=== PATIENT | male | born 1960 | race Two or more races ===

== ENCOUNTER 2018-07-18 06:16 | Day surgery (SDC) | payer OTHER ==
[2018-07-18] MEDS ORDERED: LIDOCAINE 2% (SDV) 5 ML INJ (07:00)
[2018-07-18] MEDS ORDERED: CEFAZOLIN 1 GM INJ (07:00)
[2018-07-18] MEDS ORDERED: SOD CHLORIDE 0.9% 1,000 ML IV (08:00)
[2018-07-18] MEDS ORDERED: CEFAZOLIN 2 GM/50 ML (PMX) 50 ML IVPB (08:00)
[2018-07-18] MEDS: BUPIVACAINE 0.25% (MPF) 30 ML INJ INJ (08:56)
[2018-07-18] MEDS ORDERED: BUPIVACAINE 0.25% (MPF) 30 ML INJ (09:24)
[2018-07-18] MEDS ORDERED: PROPOFOL 100 ML (09:35)
[2018-07-18] MEDS ORDERED: FENTAnyl 50 MCG/ML VIAL (09:39)
[2018-07-18] MEDS: BACITRACIN/POLYMYXIN 28.35 GM OINT TOP (10:30)
[2018-07-18] MEDS: HYDROmorphONE 1 MG/5 ML IV SYRINGE IV (10:57)
[2018-07-18] MEDS ORDERED: ALBUTEROL 0.083% (NEB) 2.5 MG/3 ML AMP HHN (11:00)
[2018-07-18] MEDS ORDERED: MEPERIDINE 25 MG INJ IV (11:00)
[2018-07-18] MEDS ORDERED: LABETALOL HCL 20MG INJ IV (11:00)
[2018-07-18] MEDS ORDERED: HYDROCODONE/APAP (5/325) TAB PO (11:00)
[2018-07-18] MEDS ORDERED: DIPHENHYDRAMINE 50 MG INJ IV (11:00)
[2018-07-18] MEDS ORDERED: FENTAnyl 50 MCG/ML VIAL IV ×2 (11:00)
[2018-07-18] MEDS ORDERED: OXYCODONE/ACETAMINOPHEN (5/325) TAB PO ×2 (11:00)
[2018-07-18] MEDS ORDERED: METOCLOPRAMIDE 10 MG INJ IV (11:00)
[2018-07-18] MEDS ORDERED: HYDROmorphONE 1 MG/5 ML IV SYRINGE IV (11:00)
[2018-07-18] MEDS ORDERED: ONDANSETRON 4 MG INJ IV (11:00)
[2018-07-18] MEDS ORDERED: hydrALAzine 20 MG INJ IV (11:00)
[2018-07-18] MEDS ORDERED: KETOROLAC 30 MG INJ IV (11:00)
[2018-07-18] MEDS ORDERED: EPHEDrine SULFATE 50 MG/5 ML SYG IV (11:00)
[2018-07-18] MEDS: FENTAnyl 50 MCG/ML VIAL IV (11:47)
== END 2018-07-18 14:10 | disposition home or self-care (01) ==
LOC: SDS 06:16
DX: L72.11 Pilar cyst (principal)
CPT/HCPCS: 14020; 88307